=== PATIENT | male | born 1940 | race Caucasian/White ===

== ENCOUNTER → 2016-10-10 | Outpatient (CLI) | payer MEDICARE, OTHER ==
[2016-10-10 09:36] LABS: CHLORIDE,CL 103 mmol/L (98-110); SODIUM,NA 137 mmol/L (136-146)
== END ==
LOC: MW.CHFP 08:43
PROVIDERS: ATTEND Student in an Organized Health Care Education/Training Program
DX: E11.9 Type 2 diabetes mellitus without complications (principal); E78.5 Hyperlipidemia, unspecified; I10 Essential (primary) hypertension; E78.00 Pure hypercholesterolemia, unspecified; E11.65 Type 2 diabetes mellitus with hyperglycemia; H61.23 Impacted cerumen, bilateral; Z23 Encounter for immunization
CPT/HCPCS: 36415; 69209; 69210; 80053; 80061; 82044; 83036; 90670; 99214; G0009

== ENCOUNTER → 2016-10-28 | Outpatient (CLI) | payer MEDICARE, OTHER | LOC: MW.CHGS 08:00 | PROVIDERS: ATTEND Surgery | DX: R19.4 Change in bowel habit (principal); Z86.010 Personal history of colon polyps; E11.65 Type 2 diabetes mellitus with hyperglycemia; E78.00 Pure hypercholesterolemia, unspecified | CPT/HCPCS: 99204 ==

== ENCOUNTER 2016-11-13 08:21 | Day surgery (SDC) | payer MEDICARE, OTHER ==
[~2016-11-13 08:21] MED LIST: Lactated Ringers 1,000 ML IV SCH; Lidocaine 2% 5 ML SDV ONE; Propofol 200 MG/20 ML SDV ONE; fentaNYL 100 MCG/2 ML SDV ONE
--- NOTE | 2016-11-13 08:58 | PCM.PREANE ---
Preanesthetic Assessment - Anesthesia/Transfusion/Family Hx Anesthesia History: Prior Anesthesia Without Reaction Family History of Anesthesia Reaction: No Transfusion History: No Prior Transfusion(s) Intubation History: Unknown - Review of Systems General: No Symptoms Pulmonary: No Symptoms Cardiovascular: No Symptoms Neurological: No Symptoms Other: Reports: None - Physical Assessment O2 Sat by Pulse Oximetry: 95 Respiratory Rate: 14 Vital Signs: Last Vital Signs Temp 36.3 C 11/13/16 08:40 Pulse 80 11/13/16 08:40 Resp 14 11/13/16 08:40 BP 99/67 11/13/16 08:40 Pulse Ox 95 11/13/16 08:40 Height: 1.75 m Weight: 97.522 kg ASA Class: 3 Mental Status: Alert & Oriented x3 Airway Class: Mallampati = 2 Dentition: Reports: Dentures (upper and lower) Thyro-Mental Finger Breadths: 3 Mouth Opening Finger Breadths: 3 ROM/Head Extension: Full Lungs: Clear to auscultation, Normal respiratory effort Cardiovascular: Regular Rate, Regular Rhythm - Lab Values: Laboratory Last Values POC Glucose 155 mg/dL (60-110) H 11/13/16 08:49 - Allergies Allergies/Adverse Reactions: Allergies Allergy/AdvReac Type Severity Reaction Status Date / Time No Known Allergies Allergy Verified 10/18/13 10:00 - Blood Blood Available: No - Anesthesia Plan Pre-Op Medication Ordered: None - Acknowledgements Anesthesia Type Planned: MAC Pt an Appropriate Candidate for the Planned Anesthesia: Yes Alternatives and Risks of Anesthesia Discussed w Pt/Guardian: Yes Pt/Guardian Understands and Agrees with Anesthesia Plan: Yes PreAnesthesia Questionnaire HEENT History: Reports: Glaucoma Other HEENT History: wears glasses, top and bottom denture Cardiovascular History: Reports: High cholesterol, Hypertension Gastrointestinal History: Reports: Colon polyp, Other (see below) Other Gastrointestinal History: occasional heartburn Musculoskeletal History: Reports: Arthritis Endocrine/Metabolic History: Reports: Diabetes, type II, Obesity/BMI 30+ - Past Surgical History Head Surgeries/Procedures: Reports: None HEENT Surgical History: Reports: Cataract surgery, Tonsillectomy GI Surgical History: Reports: Appendectomy, Colonoscopy, Hernia, abdominal, Hernia, inguinal - SUBSTANCE USE Smoking Status *Q: Light Tobacco Smoker (few cigarettes per day) Tobacco Use Within Last Twelve Months: Cigarettes Recreational Drug Use History: No - HOME MEDS Home Medications: Home Meds Aspirin [Elsie Aspirin] 81 mg PO DAILY 11/10/16 [History] Fenofibrate 54 mg PO BID 11/10/16 [History] Glimepiride [Amaryl] 2 mg PO DAILY 11/10/16 [History] Gluc 2KCl/Chondr/Hai Hy/Hy Ac [Glucosamine & Chondroitin Cap] 1 tab PO DAILY [History] Lisinopril 10 mg PO DAILY 11/10/16 [History] Multivits-Minerals/FA/Lycopene [One Daily Men's Health Tablet] 1 tab PO DAILY [History] Simvastatin [Zocor] 20 mg PO BEDTIME 11/10/16 [History] Travoprost [Travatan Z] 1 drop EYELF BEDTIME 11/10/16 [History] Vit A/C/E AC/Znox/Cupric Oxide [Eye Vitamin-Minerals Tablet] 1 tab PO DAILY 07/29 [History] metFORMIN HCl [Metformin HCl] 1,000 mg PO BID 11/10/16 [History] - CURRENT (IN HOUSE) MEDS Current Meds: Current Medications Lactated Ringer's (Ringers, Lactated) 1,000 mls @ 125 mls/hr IV ASDIRECTED POOL Last Admin: 11/13/16 08:43 Dose: 125 mls/hr Discontinued Medications Fentanyl (Sublimaze) Confirm Administered Dose 100 mcg .ROUTE .STK-MED ONE Stop: 11/13/16 07:37 Lidocaine (Xylocaine-Mpf 2%) Confirm Administered Dose 5 ml .ROUTE .STK-MED ONE Stop: 11/13/16 07:37 Propofol (Diprivan 20 Ml) Confirm Administered Dose 400 mg .ROUTE .STK-MED ONE Stop: 11/13/16 07:37
[2016-11-13] MEDS ORDERED: Propofol 200 MG/20 ML SDV ONE (09:40)
[2016-11-13] MEDS ORDERED: Lactated Ringers 1,000 ML IV SCH (10:00)
--- NOTE | 2016-11-13 10:01 | PCM.OPNOTE ---
- General Post-Op/Procedure Note Date of Surgery/Procedure: 11/13/16 Operative Procedure(s): Colonoscopy with cold rectal, sigmoid, transverse colon , and ascending colon polypectomies. Pre Op Diagnosis: Change in bowel habits. Personal history of colon polyps. Post-Op Diagnosis: Rectal polyp. Sigmoid polyp. A transverse colon polyp. Ascending colon polyp. Anesthesia Technique: MAC (ASA III) Primary Surgeon: Ramirez Akins Condition: Good Free Text/Narrative:: Dictation [id number]. CPT code: [id number]
--- NOTE | 2016-11-13 10:10 | PCM.POSTAN ---
POST ANESTHESIA ASSESSMENT - MENTAL STATUS Mental Status: alert, oriented - RESPIRATORY Respiratory Status: respiratory rate WNL, airway patent, O2 saturation stable - CARDIOVASCULAR CV Status: pulse rate WNL, blood pressure stable - GASTROINTESTINAL GI Status: no symptoms - POST OP HYDRATION Hydration Status: adequate & stable - OBSERVATIONS Free Text/Narrative:: no anesthesia problems
[2016-11-13 10:37] VITALS: BP 93/68
--- NOTE | 2016-11-13 11:41 | OR ---
SURGEON: Ramirez Akins M.D. DATE OF PROCEDURE: 11/13/2016 OPERATION PERFORMED: Colonoscopy with cold rectal, sigmoid, transverse colon, and ascending colon polypectomy. ANESTHESIA: MAC. ASA CLASSIFICATION: III. PREOPERATIVE DIAGNOSES: 1. Personal history of colon polyps. 2. Change in bowel habits. POSTOPERATIVE DIAGNOSES: 1. Ascending colon polyp. 2. Transverse colon polyp. 3. Sigmoid polyp. 4. Rectal polyp. DESCRIPTION OF PROCEDURE: The patient was taken to the endoscopy room and positioned on the endoscopy table in the left lateral decubitus position. Time-out was called for appropriate identification of the patient and procedure. Monitored anesthesia care was provided. The colonoscope was inserted into the rectum and advanced with minimal difficulty to the cecum, where the colonoscope was retroflexed to visualize the ascending colon from below. The colonoscope was then straightened and slowly withdrawn. Polyps were encountered in the locations as noted, and all were removed with the cold biopsy forceps and sent for separate histologic analysis. The cecum, ascending colon, hepatic flexure, transverse colon, splenic flexure, descending colon, sigmoid colon, and rectum were very well visualized. There was no evidence of diverticulosis. No evidence of angiodysplasia or inflammatory bowel disease. Polyps again were encountered as described above, removed individually, labeled separately, and sent for individual histologic analysis. Once the colonoscope was withdrawn to the rectum, it was retroflexed to visualize the anal orifice from above. No tumors, polyps, or acute hemorrhoidal changes were noted. The colonoscope was then straightened, the rectum aspirated, and the colonoscope removed. The patient tolerated the procedure well and was taken to recovery room in stable condition. LYN RAY /[id number]
== END 2016-11-13 10:35 | disposition home or self-care (01) ==
LOC: MW.SDS 08:21
PROVIDERS: ATTEND Surgery
PROC: 0DBK8ZZ Excision of Ascending Colon, Via Natural or Artificial Opening Endoscopic (ICD-10-PCS; principal; 2016-11-13)
PROC: 0DBL8ZZ Excision of Transverse Colon, Via Natural or Artificial Opening Endoscopic (ICD-10-PCS; 2016-11-13)
PROC: 0DBN8ZZ Excision of Sigmoid Colon, Via Natural or Artificial Opening Endoscopic (ICD-10-PCS; 2016-11-13)
PROC: 0DBP8ZZ Excision of Rectum, Via Natural or Artificial Opening Endoscopic (ICD-10-PCS; 2016-11-13)
DX: Z12.11 Encounter for screening for malignant neoplasm of colon (principal); D12.2 Benign neoplasm of ascending colon; D12.5 Benign neoplasm of sigmoid colon; K63.5 Polyp of colon; K62.1 Rectal polyp; M19.90 Unspecified osteoarthritis, unspecified site; E11.65 Type 2 diabetes mellitus with hyperglycemia; E78.5 Hyperlipidemia, unspecified; E78.00 Pure hypercholesterolemia, unspecified; I10 Essential (primary) hypertension; F17.210 Nicotine dependence, cigarettes, uncomplicated; E66.9 Obesity, unspecified; Z86.010 Personal history of colon polyps; Z79.82 Long term (current) use of aspirin; Z79.84 Long term (current) use of oral hypoglycemic drugs; Z79.899 Other long term (current) drug therapy; Z98.49 Cataract extraction status, unspecified eye; Z90.49 Acquired absence of other specified parts of digestive tract; Z90.89 Acquired absence of other organs; Z98.890 Other specified postprocedural states; Z68.31 Body mass index [BMI] 31.0-31.9, adult
CPT/HCPCS: 45380; 82962; J3010; J7120; 00810; 88305; J2704

== ENCOUNTER → 2016-11-25 | Outpatient (CLI) | payer MEDICARE, OTHER | LOC: MW.CHGS 08:00 | PROVIDERS: ATTEND Surgery | DX: D12.6 Benign neoplasm of colon, unspecified (principal); K63.5 Polyp of colon; E11.9 Type 2 diabetes mellitus without complications | CPT/HCPCS: G0463 ==